=== PATIENT | female | born 1995 | race African-American/Black ===

== ENCOUNTER 2020-07-09 10:56 | Emergency (ER) | payer MEDICAID ==
[~2020-07-09] VITALS: Ht 165.1 cm; Wt 75.0 kg
[2020-07-09] MEDS ORDERED: IBUPROFEN 600MG TABLET PO STA (11:14)
[2020-07-09 12:59] VITALS: BP 120/78
== END 2020-07-09 12:59 | disposition home or self-care (01) ==
LOC: ER 10:56
DX: S80.01XA Contusion of right knee, initial encounter (principal); W18.30XA Fall on same level, unspecified, initial encounter; Y93.89 Activity, other specified; Y92.89 Other specified places as the place of occurrence of the external cause; Y99.8 Other external cause status
CPT/HCPCS: 73562; 99283